=== PATIENT | male | born 2000 | race Caucasian/White ===

== ENCOUNTER 2019-10-19 14:40 | Emergency (ER) | payer OTHER ==
[2019-10-19 15:43] VITALS: BP 117/69; PULSE 74; TEMP 98.3; BMI 23.3
--- NOTE | 2019-10-19 15:51 | PDOC ---
History of Present Illness - General Chief Complaint: Rash Stated Complaint: ALLERGIC REACTION Time Seen by Provider: 10/19/19 15:32 History Source: Patient - History of Present Illness Timing/Duration: reports: other Past History - Past Medical History Allergies/Adverse Reactions: Allergies Allergy/AdvReac Type Severity Reaction Status Date / Time No Known Allergies Allergy Verified 10/19/19 15:31 COPD: No - Psycho Social/Smoking Cessation Hx Smoking History: Never smoked Review of Systems - Review of Systems Constitutional: No: Chills, Fever Integumentary: Yes: Pruritus, Rash *Physical Exam - Vital Signs Last Vital Signs Temp Pulse Resp BP Pulse Ox 98.3 F 74 18 117/69 99 10/19/19 15:29 10/19/19 15:29 10/19/19 15:29 10/19/19 15:29 10/19/19 15:29 - Physical Exam General Appearance: Yes: Appropriately Dressed. No: Apparent Distress HEENT: positive: Normal Voice Neck: positive: Supple Respiratory/Chest: negative: Respiratory Distress Integumentary: positive: Dry, Warm. negative: Rash Neurologic: positive: Fully Oriented, Alert, Normal Mood/Affect Medical Decision Making - Medical Decision Making 10/19/19 15:49 19-year-old male, no significant history, here for evaluation of rash. Patient states a month ago he noticed that he breaks out with generalized pruritic rash after working out or becoming very emotional per patient. [place] tingling all over his body this am so decided to come in for evaluation. No rash or itching at this time. Patient well-appearing and stable with no rash on exam. Will dc with dermatology follow-up for further evaluation to take [id number] oral antihistamine as needed Discharge - Discharge Information Problems reviewed: Yes Clinical Impression/Diagnosis: Rash and nonspecific skin eruption Condition: Good Disposition: HOME - Follow up/Referral Referrals: Amy Burgos MD [Staff Physician] - - Patient Discharge Instructions Additional Instructions: Cause of your symptoms are unclear at this time. Please follow-up with Dr. Burgos of dermatology for further evaluation - Post Discharge Activity
== END 2019-10-19 15:50 | disposition home or self-care (01) ==
LOC: JERFT 14:40
DX: R21 Rash and other nonspecific skin eruption (principal)
CPT/HCPCS: 99281-25